=== PATIENT | female | born 1975 | race Caucasian/White ===

== ENCOUNTER 2016-09-10 15:07 | Outpatient (CLI) | payer OTHER ==
[~2016-09-10 15:07] MED LIST: DEMEROL50 MG PO; FLAGYL ER750 MG PO; HYCET1 ML PO; LEVAQUIN750 MG PO; PHENERGAN EQUIV25 M1 PR
--- NOTE | 2016-09-10 17:28 | DIAGNOSTIC IMAGING REPORT ---
PROCEDURE: CT ABD/PELVIS WITH CONTRAST CLINICAL INDICATION: RLQ ABD PAIN TECHNIQUE: 145 ml of Isovue 300 were injected intravenously and axial images were obtained of the entire abdomen and pelvis with sagittal and coronal reformations. COMPARISON: CT abdomen/pelvis 03/19/2016. FINDINGS: ABDOMEN: Lung bases are clear. Normal heart size. Status post gastric bypass surgery. 1.7 cm calcified gallstone. Liver, pancreas, spleen adrenal glands and right kidney are normal. Nonobstructing left renal calculus is unchanged. Normal abdominal aorta. Nonspecific bowel gas pattern. PELVIS: Partial right hemicolectomy and ileocolic anastomosis. IUD in place. 2 cm involuting left ovarian cyst. Small amount free fluid the pelvis. Normal bladder. 5.5 cm wide fat filled surgical hernia through the right rectus muscle and 1.5 cm fat filled umbilical hernia. Moderate L5-S1 degenerative changes. IMPRESSION: 1. Status post gastric bypass 2. Cholelithiasis and left renal calculus 3. Partial right hemicolectomy and ileocolic anastomosis 4. IUD in place 5. 2 cm involuting left ovarian cysts with a small amount of free fluid in the pelvis 6. 5.5 cm wide surgical hernia through the right rectus muscle All CT scans at this facility use dose modulation, iterative reconstruction, and/or weight-based dosing when appropriate to reduce radiation dose to as low as reasonably achievable.
== END 2016-09-10 23:00 ==
LOC: CT SRH 15:07
DX: K80.50 Calculus of bile duct without cholangitis or cholecystitis without obstruction (principal); N20.0 Calculus of kidney; N83.292 Other ovarian cyst, left side; Z97.5 Presence of (intrauterine) contraceptive device; Z98.84 Bariatric surgery status

== ENCOUNTER 2016-11-08 06:12 | Day surgery (SDC) | payer OTHER ==
[~2016-11-08] VITALS: Ht 175.3 cm; Wt 93.9 kg
[~2016-11-08 06:12] MED LIST changes: +CELEXA20 MG PO; +INFED50 MG/ML IM; +IRON DEXTRAN IM; +MULTIVITAMIN1 TAB PO; +RISPERDAL0.25 MG PO; +VITAMIN C TR500 M1 PO; +VITAMIN D-31000 UNIT PO; +[UNRECOGNIZED DRUG - CODE] PO
[2016-11-08 06:19] VITALS: BP 99/38
--- NOTE | 2016-11-08 06:49 | NUR ---
PATIENT ASSESSMENT AND MED/ALLERGY REVIEW COMPLETE. VITALS STABLE. IV STARTED IN R WRIST WITH 1 ATTEMPT. LR INFUSING ON PUMP. CONSENT SIGNED BY PATIENT AND WITNESSED BY RN. PREOP INSTRUCTIONS DISCUSSED. QUESTIONS ENCOURAGED AND ANSWERED BY RN. WILL CONTINUE TO MONITOR.
--- NOTE | 2016-11-08 08:14 | NUR ---
CASE CANCELLED UPON ARRIVAL INTO THE O.R. DUE TO SLOW HEART RATE
--- NOTE | 2016-11-08 08:58 | Provider's Discharge Care Plan ---
Problem, Goal, Plan Problem List 1. Bradycardia Goals: Diagnostic testing Instructions: Follow up as directed
--- NOTE | 2016-11-08 08:58 | Provider's Discharge Care Plan ---
Problem, Goal, Plan Problem List 1. Bradycardia Goals: Diagnostic testing Instructions: Follow up as directed
--- NOTE | 2016-11-08 09:03 | Progress Note ---
Subjective General 41-year-old female scheduled for laparoscopic cholecystectomy and repair of ventral hernia. Patient was taken to the operating room and was noted by anesthesia to be bradycardic. In spite of medication sheet her heart rate did not increase. Patient is on Citralopam, Risperdal, and recently started on omeprazole. Disease in combination can slow the heart rate. It was felt that it would be safer for the patient in for surgery was delayed for another day rather than risk a cardiac dysrhythmia during surgery. This was explained to the patient. She will follow up with Dr. Giles to reevaluate her medications. We will followup with her in 2 weeks to see if she has improved, and then schedule her for surgery appropriately. All questions have been answered to her satisfaction. She understands with our plan. Physical Exam Vital Signs / I&Os Vital Signs Date Time Temp Pulse Resp B/P Pulse O2 O2 Flow FiO2 Ox Delivery Rate 11/08 0618 98.6 44 16 99/38 99 General Appearance Alert, Oriented X3, Cooperative, No acute distress HEENT PERRLA, EOMI, Moist mucous membranes Lungs Clear to auscultation Neck Supple, No JVD Cardiovascular sinus bradycardia rhythm. Abdomen right lower quadrant reducible ventral hernia Extremities No cyanosis, No clubbing, No edema Skin warm and dry Neurological No lateralizing signs Psych/Mental Status Mental status normal, Mood normal LAB Results Laboratory Tests 11/08 0835 Chemistry Plasma Sodium Pending Plasma Potassium Pending Plasma Chloride Pending CO2 (Enzymatic) Pending BUN Pending Creatinine Pending Est GFR ( Amer) Pending Est GFR (Non-Af Amer) Pending Glucose Pending Plasma Calcium Pending Total Bilirubin Pending AST Pending ALT Pending Alkaline Phosphatase Pending Total Protein Pending Albumin Pending Assessment and Plan Problem List 1. Bradycardia Plan Bradycardia probably medication induced. Plan postpone surgery until a later date. Patient will follow up with her primary care physician for management of her outpatient medications..
--- NOTE | 2016-11-08 09:42 | NUR ---
PATIENT BACK TO ROOM FROM OR. STAT EKG OBTAINED. LABS DRAWN. PATIENT HAVING HOSPITALIST CONSULT. PER HOSPITALIST, PATIENT WILL NEED POTASSIUM RIDER PRIOR TO DISCHARGE. PER DR CANELA, PATIENT TO LEAVE WITH ABDOMINAL BINDER IN PLACE.
--- NOTE | 2016-11-08 10:33 | NUR ---
80 MEQ PO POTASSIUM ORDERED. DOSE VERIFIED BY [facility] PHARMACIST. UNABLE TO DOCUMENT IN ORM. POTASSIUM ADMINISTRATION DOCUMENTED ON PATIENT'S FLOW SHEET.
--- NOTE | 2016-11-08 10:44 | NUR ---
PATIENT DEPARTED SCU AT 1042. ABDOMINAL BINDER IN PLACE. IV DISCONTINUED. PO POTASSIUM GIVEN. EDUCATION MATERIALS GIVEN ON PROLONGED QT INTERVAL. PHARMACY PRESENT TO DISCUSS MEDICATIONS TO AVOID UNTIL FOLLOW UP WITH PRIMARY CARE PROVIDER. PATIENT AND SPOUSE VERBALIZED GOOD UNDERSTANDING OF DISCHARGE INSTRUCTIONS UPON DEPARTURE.
== END 2016-11-08 10:42 | disposition home or self-care (01) ==
LOC: OR SRH 06:12 → SCU SRH 06:14 → OR SRH 07:30
DX: K80.20 Calculus of gallbladder without cholecystitis without obstruction (principal); K43.2 Incisional hernia without obstruction or gangrene; Z53.09 Procedure and treatment not carried out because of other contraindication; R00.1 Bradycardia, unspecified
CPT/HCPCS: 29240; 80248; 82669; 82794; 82807; 83338; 83339; 83587; 83920; 83937; 83982; 84038; 90074; 90100; 92720